=== PATIENT | male | born 1960 | race African-American/Black ===

== ENCOUNTER 2019-04-26 09:34 | Emergency (ER) | payer MEDICARE, OTHER, SELFPAY ==
[2019-04-26 09:35] VITALS: BP 183/115; PULSE 104; RESP 22; TEMP 36.8; O2SAT 97; O2SAT 98; BMI 36.6
--- NOTE | 2019-04-26 09:56 | RAD_ITS ---
STUDY: X-RAY CHEST REASON FOR EXAM: Male, 59 years old. Shortness of breath. TECHNIQUE: PA and lateral views of the chest. COMPARISON: None. FINDINGS: Sternotomy wires are midline. Mild prominent central interstitial markings are present. There is no demonstrated pleural abnormality. There is moderate cardiac enlargement. Normal mediastinum and josep. Normal visualized pulmonary arteries. There is atherosclerotic calcification of the aortic arch with tortuosity. Normal visualized thoracic spine. Normal visualized ribs, clavicles, and shoulders. There is no demonstrated abnormality of the visualized soft tissue structures of the upper abdomen. RAD/Chest PA and Lateral IMPRESSION: All prominent interstitial markings with mild interstitial edema not excluded. Electronically Signed: Clifford Mcadams DO at 11:18 EDT , Service support ,
--- NOTE | 2019-04-26 09:56 | EKG12_ITS ---
Test Reason : CP Blood Pressure : / mmHG Vent. Rate : 103 BPM Atrial Rate : 103 BPM P-R Int : 164 ms QRS Dur : 088 ms QT Int : 332 ms P-R-T Axes : 068 050 100 degrees QTc Int : 434 ms Sinus tachycardia Biatrial enlargement T wave abnormality, consider lateral ischemia Abnormal ECG Confirmed by SARIKA LICONA, GUDELIA ([id number]), photo editor LEMUEL ARGUETA ([id number]) on 04/29/2019 11:42:09 AM Referred By: AUTUMN Confirmed By:MARY LOU BAUM MD
[2019-04-26] MEDS: Albuterol 2.5 MG/3 ML VIAL.NEB. INHALATION ×3 (10:03→10:29)
[2019-04-26 10:04] VITALS: PULSE 96; RESP 22
[2019-04-26 10:20] LABS: Absolute Lymphocyte Count 0.78 X10^3/ul (0.83-4.51); Absolute Neutrophil Count 6.3 X10^3/uL (2.0-7.7); Basophil# 0.01 X10^3/uL; Basophil% 0.1 % (0-1); Eosinophil# 0.01 X10^3/uL; Eosinophils% 0.1 % (0-5); Hematocrit 40.8 % (40-54); Hemoglobin 12.8 g/dl (13.0-16.5); Lymphocyte # 0.78 X10^3/ul (4.0); Lymphocyte % 10.7 % (19-41); Mean Corp Hgb Conc 31.4 g/gl (32-36); Mean Corpuscular Hgb 27.6 pg (27.0-32.0); Mean Corpuscular Volume 88.1 fL (80-94); Mean Platelet Vol. 10.5 fl (6.2-12.0); Monocyte# 0.22 X10^3/uL; Neutrophil # 6.26 X10^3/uL (2.7-7.7); Platelet Count 300 K/mm3 (150-450); RBC Distribution Width CV 15.3 % (11.6-14.6); RBC Distribution Width SD 49.4 fl (35.1-43.9); Red Blood Count 4.63 M/mm3 (4.6-6.2); White Blood Count 7.3 K/mm3 (4.4-11.0)
[2019-04-26 10:22] LABS: POSITIVE COUNT NO; POSITIVE DIFFERENTIAL NO; POSITIVE MORPHOLOGY NO
[2019-04-26 10:31] LABS: Anion Gap 7 (5-15); BUN 12 mg/dL (7-18); BUN/Creat Ratio 12.7 RATIO (10-20); Chloride 107 mmol/L (98-107); Creatinine, Serum 0.94 mg/dL (0.70-1.30); EST Glomerular Filtration Rate 87 mL/min (>60); Est Glom Filt Rate - Afr Amer 105 mL/min (>60); Glucose 137 mg/dL (74-106); Potassium 3.7 mmol/L (3.5-5.1); Sodium Level 144 mmol/L (136-145)
[2019-04-26] MEDS: MethylPREDNISolone 125 MG/2 ML Vial IV (10:41)
[2019-04-26 10:42] VITALS: BP 145/99; PULSE 96; RESP 24; O2SAT 96
[2019-04-26 11:09] VITALS: BP 174/109; PULSE 101; RESP 19; O2SAT 94
--- NOTE | 2019-04-26 11:40 | ED.DCSUM_ITS ---
- ER Visit Summary Date of Service: 04/26/19 Chief Complaint: Dyspnea History of Present Illness: The patient is a 59 M who notes that for the past 3 days he has had a progressive worsening shortness of breath and chest tightness. He notes a history of obstructive sleep apnea and coronary artery disease. Former smoker. He states he has been using his albuterol MDI has been helping until he woke this morning early and could not lay down due to the tightness. His suggested a hot shower which did also did not help. He does note a yellow sputum production. He does not carry a diagnosis of COPD. He states he has had the symptoms a couple of times in the past. They do have access to a nebulizer machine but do not have the medication or the tubing Physical Examination: Afebrile vital signs are stable noted heart rate of 104. Gen: Well-nourished well-developed Head: Normocephalic atraumatic Eyes: Perrl EOMI ENT: TMs clear no rhinorrhea moist mucous membranes Neck: Supple no lymphadenopathy no JVD nontender CVS: Regular rate tachycardic rhythm no murmurs normal S1-S2 Respiratory: No distress inspiratory and expiratory wheezing chest nontender Abdomen: Soft nontender nondistended normal bowel sounds no masses Back: Nontender Extremity: Nontender no edema Skin: Normal color no rash Neuro: alert orientated ?3 CN II-XII intact normal strength sensation Psych: Normal affect normal mood Test Results: Chest x-ray shows no definitive infiltrate. CBC BMP are normal. EKG is a sinus tachycardia. Emergency Department Course and Treatment: Patient received breathing treatments and Solu-Medrol. Repeat examination his heart rate is into the 80s. His repeat lung exam shows faint expiratory wheezes and is feeling better. Patient will be discharged home with aerosols and prednisone as well as doxycycline. Instructions to follow-up with primary care return if worsening or concerns Impression: 1. Acute bronchitis with bronchospasm This note was generated with Taboola dictation software. It may contain incorrect words, spelling, and punctuation that were not noted in review of the chart prior to signing ED Disposition - Plan for ED Patient: Instructions: BRONCHITIS, Antiobiotic Treatment (Adult) Prescriptions: Prednisone [Deltasone] 60 mg PO DAILY #15 tab Prescription Printed Doxycycline 100 mg PO BID #20 cap Prescription Printed Albuterol Aerosols [Ventolin Aerosols] 2.5 mg INHALATION Q4H PRN #25 vial Prescription Printed Albuterol Inhaler [Ventolin Hfa] 2 puff INHALATION Q4H PRN PRN #1 inhaler PRN Reason: Wheezing Prescription Printed [facility] [[facility] Provider] - Keep Donna appointment
[2019-04-26 12:21] VITALS: BP 160/96; PULSE 94; RESP 17; O2SAT 95
== END 2019-04-26 12:34 | disposition home or self-care (01) ==
LOC: ED 10:15
PROVIDERS: Emergency Provider Emergency Medicine
DX: J20.9 Acute bronchitis, unspecified (principal); I25.10 Atherosclerotic heart disease of native coronary artery without angina pectoris; I10 Essential (primary) hypertension; Z95.1 Presence of aortocoronary bypass graft; Z79.82 Long term (current) use of aspirin; Z79.02 Long term (current) use of antithrombotics/antiplatelets; Z79.899 Other long term (current) drug therapy; Z87.891 Personal history of nicotine dependence
CPT/HCPCS: 71046; 80048; 85025; 93005; 94640; 96374; 99284; A4216

== ENCOUNTER 2021-01-21 09:45 | Outpatient (RCR) | payer MEDICARE, OTHER, SELFPAY ==
[2021-01-21] MEDS: COVID-19 VACC, MRNA(PFIZER)/PF 30 MCG/0.3 ML SYRINGE IM (15:24)
[2021-02-11] MEDS: COVID-19 VACC, MRNA(PFIZER)/PF 30 MCG/0.3 ML SYRINGE IM (15:03)
== END 2021-01-21 23:59 ==
LOC: IMMUN 09:45
PROVIDERS: Visit Provider Family Medicine
DX: Z23 Encounter for immunization (principal)
CPT/HCPCS: 0001A; 0002A; 91300

== ENCOUNTER 2021-03-22 13:42 | Emergency (ER) | payer OTHER, MEDICARE, SELFPAY ==
[2021-03-22 13:44] VITALS: BP 161/101; PULSE 78; RESP 18; TEMP 36.3; O2SAT 95; BMI 34.2
--- NOTE | 2021-03-22 14:11 | EKG12_ITS ---
Test Reason : FEVER Blood Pressure : / mmHG Vent. Rate : 061 BPM Atrial Rate : 061 BPM P-R Int : 172 ms QRS Dur : 094 ms QT Int : 416 ms P-R-T Axes : 063 042 071 degrees QTc Int : 418 ms Normal sinus rhythm with sinus arrhythmia Possible Left atrial enlargement Nonspecific T wave abnormality Abnormal ECG Confirmed by MALIK LICONA, JAMEL ([id number]), managing editor SINA RUTHERFORD ([id number]) on 03/23/2021 10:08:17 AM Referred By: KRISTI Confirmed By:JAMEL GAN MD
--- NOTE | 2021-03-22 14:17 | EX.ED.DYSGE1 ---
HPI History of Present Illness Chief Complaint: Fever Informant: patient and family Onset/Context/Timing Onset: Weeks (1) Narrative Narrative: 61-year-old male presenting with fever, cough. He states this started approximately 1 week ago. He has had fever, congestion, cough. He complains of rhinorrhea and sore throat. He complains of nausea and diarrhea. He has tried [id number] medications. He has a productive cough. He has been vaccinated for Covid. Denies sick contacts. He has chest pressure only when coughing. Denies other complaints. [facility] Medical History Coronary artery disease Hypertension Kidney stones Myocardial infarct Home Medications albuterol sulfate 2 puff INHALATION Q4H PRN PRN #1 inhaler 04/26/19 [Rx Last Taken Unknown] albuterol sulfate 2.5 mg INHALATION Q4H PRN #25 vial 04/26/19 [Rx Last Taken Unknown] carvedilol 50 mg PO BID 04/26/19 [History Last Taken Unknown] clopidogrel 75 mg PO DAILY 04/26/19 [History Last Taken Unknown] fluticasone propionate 2 spray NASAL DAILY 04/26/19 [History Last Taken Unknown] furosemide 20 mg PO PRN PRN 04/26/19 [History Last Taken Unknown] gabapentin 200 mg PO PRN PRN 04/26/19 [History Last Taken Unknown] lisinopril 20 mg PO BID 04/26/19 [History Last Taken Unknown] nitroglycerin 0.4 mg SL PRN PRN 04/26/19 [History Last Taken Unknown] tamsulosin 0.4 mg PO DAILY 04/26/19 [History Last Taken Unknown] aspirin [Aspir-81] 81 mg PO DAILY 03/22/21 [History Last Taken Unknown] baclofen 10 mg PO PRN PRN 03/22/21 [History Last Taken Unknown] benzonatate [Tessalon Perles] 100 mg PO BID PRN #20 cap 03/22/21 [Rx Last Taken Unknown] cholecalciferol (vitamin D3) [Vitamin D3] 50 mcg PO DAILY 03/22/21 [History Last Taken Unknown] empagliflozin 12.5 mg PO DAILY 03/22/21 [History Last Taken Unknown] eplerenone 12.5 mg DAILY 03/22/21 [History Last Taken Unknown] metformin 500 mg PO DAILY 03/22/21 [History Last Taken Unknown] rosuvastatin 80 mg PO DAILY 03/22/21 [History Last Taken Unknown] testosterone 1 patch TRANSDERMAL DAILY 03/22/21 [History Last Taken Unknown] Allergy/AdvReac Type Severity Reaction Status Date / Time No Known Allergies Allergy Verified 03/22/21 13:43 Surgical History History of coronary artery stent placement History of tonsillectomy Hx of CABG Social History Smoking Status: Former smoker ROS ROS ED Constitutional Constitutional ED: Reports fever(s) Eyes Eyes: Denies change in vision ENT ENT ED: Reports rhinorrhea and sore throat Cardiovascular Cardiovascular: Reports chest pain; Denies palpitations Respiratory/Chest Respiratory/Chest: Reports cough, dyspnea and sputum Gastrointestinal Gastrointestinal: Reports diarrhea, nausea and vomiting; Denies abdominal pain Genitourinary Genitourinary ED: Denies dysuria Musculoskeletal Musculoskeletal: Denies myalgias Integumentary Denies rash Neurologic Neurologic: Reports headache(s) EXAM Physical Exam Const Vital Signs: 03/22/21 13:44 03/22/21 14:40 Temperature 97.4 F L Temperature Source Temporal Pulse Rate 78 Respiratory Rate 18 Respiratory Effort Non-Labored Respiratory Depth Normal Respiratory Pattern Tachypnea Blood Pressure 161/101 H Blood Pressure Mean 121 Pulse Ox 95 Oxygen Delivery Method Room Air Room Air Positive well nourished and well developed General Appearance ED: well developed HEENT Reports normocephalic, head/scalp atraumatic and moist mucous membranes HEENT Narrative: Mild pharyngeal erythema with no exudate Eyes PERRL and EOMs intact bilaterally Neck supple Neck Narrative: No meningismus General: Negative for tenderness Chest Wall inspection of chest normal Resp normal respiratory effort and clear to auscultation bilaterally Cardio regular rate and regular rhythm GI non-tender and non-distended Palpation: soft; Negative for guarding or rebound tenderness present no CVA tenderness Extremity normal to inspection Neuro oriented x3 Sensorium / Orientation: alert Psych mental status grossly normal Skin no rashes or lesions noted MDM MDM MDM Narrative Medical decision making narrative: Labs are reviewed. His chest x-ray shows no acute process. Covid negative. EKG is unchanged from previous. His ambulatory pulse ox is 95% on room air. He is resting comfortably on reevaluation. He is advised to follow-up with his primary care physician. Advised to return to the ED for worsening complaints. Lab Data Attestation: I reviewed the patient's lab results. Labs: Laboratory Results - last 24 hr 03/22/21 03/22/21 14:35 14:35 WBC 8.3 RBC 4.85 Hgb 13.1 Hct 43.1 MCV 88.9 MCH 27.0 MCHC 30.4 L RDW Std Deviation 48.6 H RDW Coeff of Alexey 14.7 H Plt Count 318 MPV 9.8 Immature Gran % (Auto) 0.200 Neut % (Auto) 57.6 Lymph % (Auto) 25.7 [place] % (Auto) 13.2 H Eos % (Auto) 2.8 Baso % (Auto) 0.5 Absolute Neuts (auto) 4.8 Absolute Lymphs (auto) 2.14 Nucleated RBC % 0 Sodium 139 Potassium 3.3 L Chloride 103 Carbon Dioxide 30.0 Anion Gap 6 BUN 7 Creatinine 0.93 Estim Creat Clear Calc 69.84 Est GFR (MDRD) Af Amer 106 Est GFR (MDRD) Non-Af 87 BUN/Creatinine Ratio 7.5 L Glucose 128 H Calcium 9.0 Total Bilirubin 0.30 AST 16 ALT 23 Alkaline Phosphatase 93 Troponin I < 0.015 Total Protein 8.5 H Albumin 3.5 Globulin 5.0 H Albumin/Globulin Ratio 0.7 L Radiography Chest X-Ray - ED: 1 View, Read by ED Physician and Read by Radiologist Diagnostic Testing: Radiology Impression Chest X-Ray 03/22/21 14:20 IMPRESSION: No active disease. Electronically Signed: Brayden Vásquez MD at 15:13 EDT Tel , Service support , EKG Initial EKG: Attestation: I personally reviewed and interpreted this EKG as follows: Interpretation: Sinus Rhythm and No Acute Injury Pattern Prior EKG tracings: available for review Prior: Unchanged Discharge Plan Triage Chief Complaint: Fever ED Provider: Melissa Mcnamara Dx/Rx/DC Orders Clinical Impression: Viral syndrome Instructions: ED Viral Syndrome (Adult) Prescriptions: New benzonatate [Tessalon Perles] 100 mg capsule 100 mg PO BID PRN (Reason: cough) Qty: 20 RF: 0 No Action carvedilol 25 MG tablet 50 mg PO BID RF: 0 lisinopril 20 MG tablet 20 mg PO BID RF: 0 clopidogrel 75 MG tablet 75 mg PO DAILY RF: 0 tamsulosin 0.4 MG capsule 0.4 mg PO DAILY RF: 0 nitroglycerin 0.4 MG tablet, sublingual 0.4 mg SL PRN PRN (Reason: CHEST PAIN) RF: 0 furosemide 20 MG tablet 20 mg PO PRN PRN (Reason: other) RF: 0 gabapentin 100 MG capsule 200 mg PO PRN PRN (Reason: Pain) RF: 0 fluticasone propionate 1 SPRAY spray,suspension 2 spray NASAL DAILY RF: 0 albuterol sulfate 2.5 MG/3 ML solution for nebulization 2.5 mg inhalation Q4H PRN Qty: 25 RF: 0 albuterol sulfate 1 INHALER inhaler 2 puff inhalation Q4H PRN PRN (Reason: Wheezing) Qty: 1 RF: 0 metformin 500 mg Tablet 500 mg PO DAILY RF: 0 rosuvastatin 40 mg Tablet 80 mg PO DAILY RF: 0 empagliflozin 25 mg Tablet 12.5 mg PO DAILY RF: 0 eplerenone 12.5 mg DAILY RF: 0 aspirin [Aspir-81] 81 mg Tablet,Delayed Release (Dr/Ec) 81 mg PO DAILY RF: 0 baclofen 10 mg Tablet 10 mg PO PRN PRN (Reason: Muscle Pain) RF: 0 cholecalciferol (vitamin D3) [Vitamin D3] 50 mcg (2,000 unit) Tablet 50 mcg PO DAILY RF: 0 testosterone 2 mg/24 hour Patch 24 Hour 1 patch TRANSDERMAL DAILY RF: 0 [facility] [Primary [facility] Provider] - Disposition Disposition: Home, self care
--- NOTE | 2021-03-22 14:20 | RAD_ITS ---
STUDY: X-RAY CHEST REASON FOR EXAM: Male, 61 years old. cough, fever TECHNIQUE: Single AP portable view of the chest. COMPARISON: 04/26/2019 FINDINGS: Status post median sternotomy. The lungs are clear and expanded. There is no demonstrated pleural abnormality. There is moderate cardiac enlargement. Normal mediastinum and josep. Normal visualized pulmonary arteries. Normal visualized aortic arch and descending thoracic aorta. Normal visualized thoracic spine. Normal visualized ribs, clavicles, and shoulders. There is no demonstrated abnormality of the visualized soft tissue structures of the upper abdomen. RAD/Chest 1 View (Portable) IMPRESSION: No active disease. Electronically Signed: Brayden Vásquez MD at 15:13 EDT Tel , Service support ,
[2021-03-22 14:40] VITALS: O2SAT 97
[2021-03-22 14:49] LABS: Absolute Lymphocyte Count 2.14 X10^3/uL (0.83-4.51); Absolute Neutrophil Count 4.8 X10^3/uL (2.0-7.7); Basophil# 0.04 X10^3/uL; Basophil% 0.5 % (0-1); Eosinophil# 0.23 X10^3/uL; Eosinophils% 2.8 % (0-5); Hematocrit 43.1 % (40-54); Hemoglobin 13.1 g/dL (13.0-16.5); Lymphocyte # 2.14 X10^3/ul (0.83-4.51); Lymphocyte % 25.7 % (19-41); Mean Corp Hgb Conc 30.4 g/dL (32-36); Mean Corpuscular Volume 88.9 fL (80-94); Mean Platelet Vol. 9.8 fl (6.2-12.0); Monocyte% 13.2 % (0-10); NRBC Flagged by Analyzer 0 % (0-5); Neutrophil # 4.81 X10^3/uL (2.7-7.7); Neutrophil % 57.6 % (47-70); Platelet Count 318 K/mm3 (150-450); RBC Distribution Width CV 14.7 % (11.6-14.6); RBC Distribution Width SD 48.6 fl (35.1-43.9); Red Blood Count 4.85 M/mm3 (4.6-6.2); White Blood Count 8.3 K/mm3 (4.4-11.0)
[2021-03-22 15:02] LABS: ALB/GLOB Ratio 0.7 RATIO (0.9-2.4); AST(SGOT) 16 U/L (15-37); Alanine Aminotransfer ALT/SGPT 23 U/L (16-61); Albumin, Serum 3.5 g/dL (3.2-5.0); Alkaline Phosphatase 93 U/L (45-117); Anion Gap 6 (5-15); BUN 7 mg/dL (7-18); BUN/Creat Ratio 7.5 RATIO (10-20); Chloride 103 mmol/L (98-107); Creatinine, Serum 0.93 mg/dL (0.70-1.30); EST Glomerular Filtration Rate 87 mL/min (>60); Est Glom Filt Rate - Afr Amer 106 mL/min (>60); Estimated Creatinine Clearance 69.84 ml/min; Glucose 128 mg/dL (74-106); Potassium 3.3 mmol/L (3.5-5.1); Protein, Total 8.5 g/dL (6.4-8.2); Sodium Level 139 mmol/L (136-145)
[2021-03-22 15:27] VITALS: O2SAT 95
[2021-03-22 16:06] VITALS: BP 135/80; PULSE 75; RESP 16; O2SAT 95
== END 2021-03-22 16:07 | disposition home or self-care (01) ==
PROVIDERS: Emergency Provider Emergency Medicine
DX: B34.9 Viral infection, unspecified (principal); Z20.822 Contact with and (suspected) exposure to COVID-19; R05 Cough; R50.9 Fever, unspecified; J02.9 Acute pharyngitis, unspecified; J34.89 Other specified disorders of nose and nasal sinuses; R11.0 Nausea; R19.7 Diarrhea, unspecified; R07.89 Other chest pain; I25.10 Atherosclerotic heart disease of native coronary artery without angina pectoris; I10 Essential (primary) hypertension; Z79.84 Long term (current) use of oral hypoglycemic drugs; Z79.02 Long term (current) use of antithrombotics/antiplatelets; Z79.82 Long term (current) use of aspirin; Z79.899 Other long term (current) drug therapy; Z87.891 Personal history of nicotine dependence; Z95.1 Presence of aortocoronary bypass graft; Z95.5 Presence of coronary angioplasty implant and graft
CPT/HCPCS: 71045; 80053; 84484; 85025; 87426; 93005; 96360; 99284; J7030

== ENCOUNTER 2022-02-18 07:52 | Day surgery (SDC) | payer OTHER, SELFPAY ==
[2022-02-18] VITALS (7 sets, daily range): BP systolic 86–134; BP diastolic 57–65; PULSE 51–74; RESP 16–18; TEMP 36.3–37.1; O2SAT 96–99; BMI 34.0
--- NOTE | 2022-02-18 08:34 | PCM.HP.BLA ---
History and Physical Date of Admission: 02/18/22 Visit Reasons: EGD AND COLONOSCOPY Chief Complaint: EGD and Colonoscopy Human Resources Clerk Required: No Is patient in pain?: No Allergies No Known Allergies Allergy (Verified 01/14/22 09:29) Medications albuterol sulfate 2 puff INHALATION Q4H PRN PRN #1 inhaler 04/26/19 [Rx Confirmed 01/14/22] albuterol sulfate 2.5 mg INHALATION Q4H PRN #25 vial 04/26/19 [Rx Confirmed 01/14/22] carvedilol 50 mg PO BID 04/26/19 [History Confirmed 01/14/22] clopidogrel 75 mg PO DAILY 04/26/19 [History Confirmed 01/14/22] fluticasone propionate 2 spray NASAL DAILY 04/26/19 [History Confirmed 01/14/22] furosemide 20 mg PO PRN PRN 04/26/19 [History Confirmed 01/14/22] gabapentin 200 mg PO PRN PRN 04/26/19 [History Confirmed 01/14/22] lisinopril 20 mg PO BID 04/26/19 [History Confirmed 01/14/22] nitroglycerin 0.4 mg SUBLINGUAL PRN PRN 04/26/19 [History Confirmed 01/14/22] tamsulosin 0.4 mg PO DAILY 04/26/19 [History Confirmed 01/14/22] aspirin [Aspir-81] 81 mg PO DAILY 03/22/21 [History Confirmed 01/14/22] baclofen 10 mg PO PRN PRN 03/22/21 [History Confirmed 01/14/22] benzonatate [Tessalon Perles] 100 mg PO BID PRN #20 cap 03/22/21 [Rx Confirmed 01/14/22] cholecalciferol (vitamin D3) [Vitamin D3] 50 mcg PO DAILY 03/22/21 [History Confirmed 01/14/22] empagliflozin 12.5 mg PO DAILY 03/22/21 [History Confirmed 01/14/22] eplerenone 12.5 mg DAILY 03/22/21 [History Confirmed 01/14/22] metformin 500 mg PO DAILY 03/22/21 [History Confirmed 01/14/22] rosuvastatin 80 mg PO DAILY 03/22/21 [History Confirmed 01/14/22] testosterone 1 patch TRANSDERMAL DAILY 03/22/21 [History Confirmed 01/14/22] ferrous sulfate 325 mg (65 mg iron) tablet 325 mg PO BID 01/14/22 [History Confirmed 01/14/22] pantoprazole 20 mg tablet,delayed release 20 mg PO DAILY 01/14/22 [History Confirmed 01/14/22] [facility] Medical History Coronary artery disease Hypertension Kidney stones Myocardial infarct Surgical History History of coronary artery stent placement History of tonsillectomy Hx of CABG Family History (Updated 01/14/22 @ 09:25 by Natty Monday) Mother Arthritis Diabetes Hypertension High cholesterol CVA (cerebral vascular accident) Father Hypertension Sister Diabetes Hypertension Social History Smoking Status: Former smoker alcohol intake: current substance use type: marijuana HPI HPI HPI: HILARIO CHRISTIANSON, is a 62 M who presents to the office today for surgical consultation regarding possible upper and lower endoscopy. The patient is referred by the [facility]. One of the patient's concerns is esophageal dysphagia. He notes that food continues to get stuck in his throat. He notes that liquids also cause him trouble. Only with cold or carbonated beverages. Belching helps. He has a known history of gastroesophageal reflux disease. He had an upper endoscopy on May 05, 2016 which at that point was felt to be normal. He is on pantoprazole 20 mg daily. On December 02, 2021 modified barium swallow was obtained. Multiple consistencies of barium were administered without penetration or aspiration. I do not see any additional discussion or description regarding the esophagus. Patient specifically describes that cold fluids causes him to almost spasm and lock up. He has to burp or regurgitate or have someone hit him on the back to help break the spasm He has never had a colonoscopy He is disabled from the service He describes episodes of severe abdominal spasms and cramping. He has not had this evaluated. It has been ongoing for years. He has had coronary bypass surgery and is on clopidogrel therapy. He has a remote history of cigarette smoking but says he quit 15 years ago. He did well with current weight change. No bright red blood per rectum or melena ROS General General: Yes fatigue; No weight change, appetite, colon cancer, breast cancer or weakness HEENT HEENT: Yes difficulty swallowing; No eye injury, eye surgery, swollen glands or hoarseness Endo Endocrine: No thyroid disease, diabetes mellitus, thyroid cancer, Hair loss, heat intolerance or cold intolerance Skin Skin: No rash or changing moles Musc Musculoskeletal: Yes arthritis and rheumatoid arthritis; No back problems, gout or joint pain Cardio Cardiovascular: Yes heart disease, atrial fibrillation, high blood pressure, heart attack and heart stent; No murmur, pacemaker, palpitations, shortness of breat with exertion or chest pain Psych Psychiatric: No depression, anxiety or hearing voices Resp Respiratory: Yes shortness of breath, Yes sleep apnea, No cough, No COPD, No asthma, No emphysema and No wheezing Gastro Gastrointestinal: Yes abdominal pain, No nausea or vomiting, No diarrhea, No constipation, No blood in stool, Yes acid reflux, No hemorrhoids, No ulcers, No gallbladder problem and No black,tarry stools Marcelo Hematologic: Yes blood thinners, No blood disorders, No bleeding, No anemia and No blood clots Neuro Neurologic: No system reviewed and no additional complaints, except as documented, No as per HPI, No abnormal gait, No abnormal hearing, No abnormal movements, No abnormal speech, No behavioral changes, No burning sensations, No confusion, No convulsions, No disequilibrium, No dizziness, No localized weakness, No frequent falls, No headache(s), No lack of coordination, No loss of vision, No memory loss, No numbness, No other visual disturbances, No radicular pain, No restless legs, No sensory deficit, No syncope, No tingling, No tremor(s), No weakness and No other Exam Const General: cooperative and comfortable Nutritional Appearance: overweight Orientation: alert and awake [facility] Head: normal to inspection Eyes General: appearance normal, both eyes and all related structures Neck Neck: normal visual inspection Resp Effort & Inspection: normal respiratory effort Auscultation: clear to auscultation bilaterally Cardio Rate: regular rate Rhythm: regular rhythm GI Palpation: soft and no hepatosplenomegaly Neuro General: patient alert and patient awake Extrem General: normal to inspection and no calf tenderness Assessment and Plan Assessment and Plan (1) Difficulty swallowing: Status: Acute Qualifiers: Dysphagia type: oropharyngeal phase Qualified Code(s): R13.12 - Dysphagia, oropharyngeal phase Comment: Both liquids and solids, mostly liquids (2) Screening for intestinal cancer: Status: Acute Plan - Dr. Abner Cardona MD: I recommend to the patient is esophagogastroduodenoscopy with possible biopsy. Very careful inspection prickly of the esophagus looking for any areas of potential obstruction or stricturing. Careful inspection for possible eosinophilic esophagitis. I recommend a screening colonoscopy with possible biopsy or polypectomy as indicated. The patient is aware of technique, benefit, risk of alternatives. Pending the findings he might benefit from a future esophageal manometry. Some of his abdominal aches and cramping almost sound like IBS. The symptoms however are chronic over multiple years. Might require future GI referral. He has had an opportunity to ask and have questions answered. I appreciate the opportunity of assisting with surgical care. Copy: [facility] Abner Cardona M.D., F.A.C.S. I have re-examined the patient. There are no clinical changes since date of exam. Abner Cardona M.D., F.A.C.S.
[2022-02-18] MEDS: Lactated Ringers 1,000 ML 30 ML IV (08:37)
[2022-02-18 08:45] LABS: Bedside Glucose 131 mg/dL (74-106)
--- NOTE | 2022-02-18 09:00 | EGD_PTH ---
PATIENT: HILARIO CHRISTIANSON LOC: EN U#:[id number] AGE/SX: 62/M ROOM: RE02/18/[address]: Dr. Abner Cardona MD : 1960 BED: DIS: 02/18/2022 SPEC #: [id number] RECD: 02/18/22 11:47 STATUS: ANGELICA ASHLEY #: [id number] [place]: 02/18/22 09:[address]: Abner Cardona DEPT: SURGICAL PATHOLOGY RECD BY: Nancy Saab ENTERED: 02/18/22 12:14 SP TYPE: EGD BIOPSY OT DR: [facility] Tissues: A - Duodenum, NOS B - Gastric mucous membrane C - Esophagus, NOS D - Esophagus, NOS E - Transverse colon Procedures: Special Stain Group II Surgery Specimen Level IV Alcian Blue/PAS (control) HEADER OPERATION: Colonoscopy with hot snare, EGD with biopsy ([facility]) PRE-OP DIAGNOSIS: Difficulty swallowing, screening TISSUE SUBMITTED: A ? Duodenum biopsy, B ? Antrum biopsy, C ? Distal esophagus biopsy, D ? Mid esophagus biopsy, E ? Proximal transverse colon polyp MICROSCOPIC DIAGNOSIS A. Duodenum, biopsy: Minimal nonspecific chronic inflammation and focal acute inflammation. B. Gastric antrum, biopsy: Mild chronic gastritis. See comment. C. Distal esophagus, biopsy: No pathologic change. No evidence of goblet cell metaplasia. See comment. D. Mid esophagus, biopsy: No pathologic change. E. Proximal transverse colon polyp, biopsy: Fragments of tubular adenoma. AM:[place] 02/21/2022 COMMENT B. The results of immunohistochemistry for Helicobacter pylori will be reported separately ([id number]). C. Alcian blue/PAS stain with matched control supports the above diagnosis. MICROSCOPIC DESCRIPTION Slides are reviewed. GROSS DESCRIPTION A - Received in fixative is one container labeled with the patient's name and designated duodenum biopsy. The specimen consists of one irregular fragment of light gutierrez soft tissue that measures 0.3 x 0.3 x 0.1 cm. The specimen is totally submitted in one cassette. B - Received in fixative is one container labeled with the patient's name and designated antrum biopsy. The specimen consists of one irregular fragment of light gutierrez soft tissue that measures 0.8 x 0.2 x 0.1 cm. The specimen is totally submitted in one cassette. C - Received in fixative is one container labeled with the patient's name and designated distal esophagus biopsy. The specimen consists of one irregular fragment of light gutierrez soft tissue that measures 0.3 x 0.3 x 0.1 cm. The specimen is totally submitted in one cassette. D - Received in fixative is one container labeled with the patient's name and designated mid esophagus biopsy. The specimen consists of two irregular fragments of light gutierrez soft tissue that in aggregate measure 0.5 x 0.2 x 0.1 cm. The specimen is totally submitted in one cassette. E - Received in fixative is one container labeled with the patient's name and designated proximal transverse colon polyp. The specimen consists of multiple irregular fragments of light gutierrez soft tissue that in aggregate measure 0.4 x 0.2 x 0.1 cm. The specimen is totally submitted in one cassette. / CLARA:[place] 02/18/2022 TC:2 CPT: 29651 x5, 13317
--- NOTE | 2022-02-18 09:00 | IMM_PTH ---
PATIENT: HILARIO CHRISTIANSON LOC: EN U#:[id number] AGE/SX: 62/M ROOM: RE02/18/[address]: Dr. Abner Cardona MD : 1960 BED: DIS: 02/18/2022 SPEC #: [id number] RECD: 02/18/22 12:24 STATUS: ANGELICA RAMIREZ #: [id number] [place]: 02/18/22 09:[address]: Abner Cardona DEPT: IMMUNOHISTOCHEMISTRY RECD BY: Emelyn Gacria ENTERED: 02/18/22 12:24 SP TYPE: IMMUNO OTHR DR: [facility] Tissues: B - Stomach, NOS Procedures: H Pylori (initial) PHYSICIAN & INSTITUTION [place] [id number] SPECIMEN INFORMATION: Tissue Source: B ? Antrum biopsy Clinical Info: Difficulty swallowing, screening Specimen Number: [id number] CPT code: 98759 METHODOLOGY: Deparaffinized sections of prefer/formalin-fixed tissue or PAP/DQ stained slides are incubated with monoclonal/polyclonal antibodies/oligonucleotide probes. Localization is made via biotin free immunoperoxidase method. Appropriate controls are performed and reacted as expected. Results on target cell population are indicated in the following table: RESULTS: ANTIBODY / CLONE RESULT Block B H Pylori (polyclonal) negative These tests were developed and their performance characteristics determined by [facility]. They may not have been cleared or approved by the U.S. Food and Drug Administration. The FDA has determined that such clearance or approval is not necessary. The above immunohistochemical/dualISH markers are ordered and reviewed by the Pathologist. INTERPRETATION: B. Antrum biopsy: Negative for Helicobacter pylori organisms. AM:[place] 02/22/2022
--- NOTE | 2022-02-18 10:07 | OP.EGD_ITS ---
Patient Name: Johnathan Lewis Procedure Date: 02/18/2022 9:33 AM Date of : 1960 Age: 62 Procedure: Upper GI endoscopy Indications: Dysphagia Providers: Abner Cardona MD Medicines: See the Anesthesia note for documentation of the administered medications Complications: No immediate complications. Procedure: Pre-Anesthesia Assessment: - Prior to the procedure, a History and Physical was performed, and patient medications and allergies were reviewed. The patient's tolerance of previous anesthesia was also reviewed. The risks and benefits of the procedure and the sedation options and risks were discussed with the patient. All questions were answered, and informed consent was obtained. Prior Anticoagulants: The patient has taken no previous anticoagulant or antiplatelet agents. ASA Grade Assessment: II - A patient with mild systemic disease. After reviewing the risks and benefits, the patient was deemed in satisfactory condition to undergo the procedure. After obtaining informed consent, the endoscope was passed under direct vision. Throughout the procedure, the patient's blood pressure, pulse, and oxygen saturations were monitored continuously. The gastroscope was introduced through the mouth, and advanced to the second part of duodenum. The upper GI endoscopy was accomplished without difficulty. The patient tolerated the procedure well. Scope In: 9:41:07 AM Scope Out: 9:46:47 AM Total Procedure Duration Time 0 hours 5 minutes 40 seconds Findings: The middle third of the esophagus was normal. Biopsies were taken with a cold forceps for histology. The distal esophagus was normal. Biopsies were taken with a cold forceps for histology. The Z-line was regular and was found 40 cm from the incisors. Diffuse mildly erythematous mucosa without bleeding was found in the gastric antrum. Biopsies were taken with a cold forceps for histology. The examined duodenum was normal. Biopsies were taken with a cold forceps for histology. Impression: - Normal middle third of esophagus. Biopsied. - Normal distal esophagus. Biopsied. - Z-line regular, 40 cm from the incisors. - Erythematous mucosa in the antrum. Biopsied. - Normal examined duodenum. Biopsied. Recommendation: - Discharge patient to home. - Resume previous diet. - Continue present medications. - Telephone my office for pathology results in 1 week. Procedure Code(s): --- Professional --- 93594, Esophagogastroduodenoscopy, flexible, transoral; with biopsy, single or multiple Diagnosis Code(s): --- Professional --- K31.89, Other diseases of stomach and duodenum R13.10, Dysphagia, unspecified CPT copyright 2017 [employer]. All rights reserved. The codes documented in this report are preliminary and upon finishing range operator review may be revised to meet current compliance requirements. Abner Cardona MD 02/18/2022 10:07:34 AM This report has been signed electronically. Number of Addenda: 0 Note Initiated On: 02/18/2022 9:33 AM
--- NOTE | 2022-02-18 10:08 | OP.CCLET_ITS ---
02/18/2022 [facility] Re : Upper GI endoscopy procedure for Johnathan Lewis [facility] This procedure was performed on Friday, February 18, 2022. My impressions and recommendations are as follows: Impressions : - Normal middle third of esophagus. Biopsied. - Normal distal esophagus. Biopsied. - Z-line regular, 40 cm from the incisors. - Erythematous mucosa in the antrum. Biopsied. - Normal examined duodenum. Biopsied. Recommendations : - Discharge patient to home. - Resume previous diet. - Continue present medications. - Telephone my office for pathology results in 1 week. My findings are described in the full procedure note, which is enclosed. If I can be of further assistance, please feel free to contact me at Doctor phone number(s): Work: . Sincerely, Abner Cardona MD 02/18/2022 10:07:34 AM This report has been signed electronically.
--- NOTE | 2022-02-18 10:11 | OP.COLON_ITS ---
Patient Name: Johnathan Lewis Procedure Date: 02/18/2022 9:49 AM Date of : 1960 Age: 62 Procedure: Colonoscopy Indications: Screening for colorectal malignant neoplasm Providers: Abner Cardona MD Medicines: See the Anesthesia note for documentation of the administered medications Patient Profile: Last Colonoscopy: none. The patient's first colonoscopy is today. Complications: No immediate complications. Procedure: Pre-Anesthesia Assessment: - Prior to the procedure, a History and Physical was performed, and patient medications and allergies were reviewed. The patient's tolerance of previous anesthesia was also reviewed. The risks and benefits of the procedure and the sedation options and risks were discussed with the patient. All questions were answered, and informed consent was obtained. Prior Anticoagulants: The patient has taken no previous anticoagulant or antiplatelet agents. ASA Grade Assessment: II - A patient with mild systemic disease. After reviewing the risks and benefits, the patient was deemed in satisfactory condition to undergo the procedure. After I obtained informed consent, the scope was passed under direct vision. Throughout the procedure, the patient's blood pressure, pulse, and oxygen saturations were monitored continuously. The colonoscope was introduced through the anus and advanced to the cecum, identified by appendiceal orifice and ileocecal valve. The colonoscopy was performed without difficulty. The patient tolerated the procedure well. The quality of the bowel preparation was fair. The ileocecal valve and the appendiceal orifice were photographed. Scope In: 9:51:23 AM Scope Withdrawal Time 0 hours 7 minutes 31 seconds Scope Out: 10:02:49 AM Total Procedure Duration Time 0 hours 11 minutes 26 seconds Findings: Hemorrhoids were found on perianal exam. A 10 mm polyp was found in the proximal transverse colon. The polyp was semi-pedunculated. The polyp was removed with a hot snare. Resection and retrieval were complete. Many diverticula were found in the sigmoid colon and descending colon. Impression: - Preparation of the colon was fair. - Hemorrhoids found on perianal exam. - One 10 mm polyp in the proximal transverse colon, removed with a hot snare. Resected and retrieved. - Diverticulosis in the sigmoid colon and in the descending colon. Recommendation: - Discharge patient to home. - Resume previous diet. - Continue present medications. - Repeat colonoscopy in 5 years for surveillance based on pathology results. - Telephone my office for pathology results in 1 week. Procedure Code(s): --- Professional --- 06729, Colonoscopy, flexible; with removal of tumor(s), polyp(s), or other lesion(s) by snare technique Diagnosis Code(s): --- Professional --- Z12.11, Encounter for screening for malignant neoplasm of colon K64.9, Unspecified hemorrhoids D12.3, Benign neoplasm of transverse colon (hepatic flexure or splenic flexure) K57.30, Diverticulosis of large intestine without perforation or abscess without bleeding CPT copyright 2017 [employer]. All rights reserved. The codes documented in this report are preliminary and upon middle school special education teacher review may be revised to meet current compliance requirements. Abner Cardona MD 02/18/2022 10:11:02 AM This report has been signed electronically. Number of Addenda: 0 Note Initiated On: 02/18/2022 9:49 AM
--- NOTE | 2022-02-18 10:11 | OP.CCLET_ITS ---
02/18/2022 [facility] Re : Colonoscopy procedure for Johnathan [facility] This procedure was performed on Friday, February 18, 2022. My impressions and recommendations are as follows: Impressions : - Preparation of the colon was fair. - Hemorrhoids found on perianal exam. - One 10 mm polyp in the proximal transverse colon, removed with a hot snare. Resected and retrieved. - Diverticulosis in the sigmoid colon and in the descending colon. Recommendations : - Discharge patient to home. - Resume previous diet. - Continue present medications. - Repeat colonoscopy in 5 years for surveillance based on pathology results. - Telephone my office for pathology results in 1 week. My findings are described in the full procedure note, which is enclosed. If I can be of further assistance, please feel free to contact me at Doctor phone number(s): Work: . Sincerely, Abner Cardona MD 02/18/2022 10:11:02 AM This report has been signed electronically.
== END 2022-02-18 23:59 | disposition home or self-care (01) ==
LOC: EN 07:56 → AC 07:57
PROVIDERS: Visit Provider Surgery
PROC: 0DJD8ZZ Inspection of Lower Intestinal Tract, Via Natural or Artificial Opening Endoscopic (ICD-10-PCS; CPT 45378; principal; 2022-02-18 08:55)
DX: Z12.11 Encounter for screening for malignant neoplasm of colon (principal); I11.0 Hypertensive heart disease with heart failure; I50.9 Heart failure, unspecified; I48.91 Unspecified atrial fibrillation; E11.9 Type 2 diabetes mellitus without complications; D12.3 Benign neoplasm of transverse colon; K29.50 Unspecified chronic gastritis without bleeding; K31.89 Other diseases of stomach and duodenum; K57.30 Diverticulosis of large intestine without perforation or abscess without bleeding; I25.10 Atherosclerotic heart disease of native coronary artery without angina pectoris; F12.90 Cannabis use, unspecified, uncomplicated; K21.9 Gastro-esophageal reflux disease without esophagitis; K64.9 Unspecified hemorrhoids; R13.12 Dysphagia, oropharyngeal phase; G47.30 Sleep apnea, unspecified; I25.2 Old myocardial infarction; M19.90 Unspecified osteoarthritis, unspecified site; E78.00 Pure hypercholesterolemia, unspecified; Z79.82 Long term (current) use of aspirin; Z79.84 Long term (current) use of oral hypoglycemic drugs; Z79.899 Other long term (current) drug therapy; Z95.5 Presence of coronary angioplasty implant and graft; Z87.891 Personal history of nicotine dependence
CPT/HCPCS: 45385; 43239; 82962; 88305; 88313; 88342; J7120; J2405

== ENCOUNTER 2024-09-15 14:35 | Observation (INO) | payer OTHER, SELFPAY ==
[2024-09-15 14:36] VITALS: BP 191/109; PULSE 66; RESP 18; TEMP 36.2; O2SAT 99; BMI 33.7
[2024-09-15] MEDS: Ondansetron ODT 4 MG Tablet PO (15:02)
[2024-09-15] MEDS: HYDROcodone Bitartrate/Apap 5/325 Tablet PO (15:03)
[2024-09-15 15:14] LABS: Absolute Lymphocyte Count 2.66 X10^3/uL (0.83-4.51); Basophil# 0.04 X10^3/uL; Basophil% 0.5 % (0-1); Eosinophil# 0.09 X10^3/uL; Eosinophils% 1.2 % (0-5); Hematocrit 41.5 % (40-54); Hemoglobin 13.2 g/dL (13.0-16.5); Lymphocyte # 2.66 X10^3/ul (0.83-4.51); Mean Corp Hgb Conc 31.8 g/dL (32-36); Mean Corpuscular Hgb 28.8 pg (27.0-32.0); Mean Corpuscular Volume 90.6 fL (80-94); Mean Platelet Vol. 9.9 fl (6.2-12.0); Monocyte% 8.1 % (0-10); NRBC Flagged by Analyzer 0 % (0-5); Neutrophil # 3.98 X10^3/uL (2.7-7.7); Neutrophil % 53.9 % (47-70); Platelet Count 264 K/mm3 (150-450); RBC Distribution Width CV 14.4 % (11.6-14.6); RBC Distribution Width SD 47.5 fl (35.1-43.9); Red Blood Count 4.58 M/mm3 (4.6-6.2); White Blood Count 7.4 K/mm3 (4.4-11.0)
[2024-09-15 15:22] LABS: International Normalized Ratio 1.1; Prothrombin Time (Protime)PT. 13.7 SECONDS (11.7-14.9)
[2024-09-15 15:23] LABS: Partial Thromboplast Time 36.5 Seconds (24.1-36.2)
[2024-09-15 15:38] LABS: AST(SGOT) 17 U/L (15-37); Alanine Aminotransfer ALT/SGPT 24 U/L (16-61); Albumin, Serum 3.8 g/dL (3.2-5.0); Alkaline Phosphatase 62 U/L (45-117); Anion Gap 5 (5-15); BUN 9 mg/dL (7-18); BUN/Creat Ratio 11.9 RATIO (10-20); Bilirubin, Direct 0.13 mg/dL (0.00-0.30); Calcium,Total 9.4 mg/dL (8.5-10.1); Chloride 105 mmol/L (98-107); Creatinine, Serum 0.76 mg/dL (0.70-1.30); EST Glomerular Filtration Rate 110 mL/min (>60); Est Glom Filt Rate - Afr Amer 134 mL/min (>60); Estimated Creatinine Clearance 98.98 ml/min; Globulin 4.1 g/dL (2.2-4.2); Glucose 102 mg/dL (74-106); Potassium 3.4 mmol/L (3.5-5.1); Protein, Total 7.9 g/dL (6.4-8.2); Sodium Level 139 mmol/L (136-145); Troponin-I HS 28 pg/mL (3.0-78.0)
[2024-09-15] MEDS: Amox/Clavulanate 875 MG Tablet PO (16:30)
[2024-09-15 16:46] VITALS: BP 184/104; PULSE 78; RESP 16; TEMP 36.6; O2SAT 99
[2024-09-15] MEDS: Aspirin 81 MG TAB.CHEW 243 MG PO (17:14)
[2024-09-15 17:57] VITALS: BMI 33.7
[2024-09-15 18:28] VITALS: BP 182/102; PULSE 84; RESP 16; TEMP 36.7; O2SAT 97
[2024-09-15 18:29] VITALS: BP 178/94; BP 185/86; BP 192/99; PULSE 79; PULSE 81; PULSE 82
[2024-09-15] MEDS: Amox/Clavulanate 500 MG Tablet PO (23:39)
[2024-09-15] MEDS: Tamsulosin HCl 0.4 MG Capsule PO (23:40)
[2024-09-15] MEDS: Ezetimibe 10 MG Tablet PO (23:40)
[2024-09-15] MEDS: Pantoprazole Sodium 20 MG Tablet PO (23:40)
[2024-09-15] MEDS: SACUBITRIL/VALSARTAN 97-103 MG TABLET 1 EACH PO (23:40)
[2024-09-15] MEDS: Atorvastatin Calcium 80 MG Tablet PO (23:40)
[2024-09-15] MEDS: Acetaminophen 325 MG Tablet 650 MG PO (23:40)
[2024-09-15 23:49] VITALS: BP 178/92; PULSE 79; RESP 16; TEMP 37.2; O2SAT 98
[2024-09-16] MEDS: Amox/Clavulanate 500 MG Tablet PO ×2 (05:21→13:11)
[2024-09-16] MEDS: Acetaminophen 325 MG Tablet 650 MG PO ×2 (05:22→13:10)
[2024-09-16 05:28] VITALS: BP 149/76; PULSE 61; RESP 16; TEMP 36.5; O2SAT 97
[2024-09-16 07:26] LABS: Absolute Lymphocyte Count 2.49 X10^3/uL (0.83-4.51); Absolute Neutrophil Count 2.4 X10^3/uL (2.0-7.7); Basophil# 0.03 X10^3/uL; Basophil% 0.5 % (0-1); Eosinophil# 0.08 X10^3/uL; Eosinophils% 1.4 % (0-5); Hematocrit 40.3 % (40-54); Hemoglobin 12.8 g/dL (13.0-16.5); Lymphocyte # 2.49 X10^3/ul (0.83-4.51); Lymphocyte % 44.6 % (19-41); Mean Corp Hgb Conc 31.8 g/dL (32-36); Mean Corpuscular Hgb 28.7 pg (27.0-32.0); Mean Corpuscular Volume 90.4 fL (80-94); Mean Platelet Vol. 9.8 fl (6.2-12.0); Monocyte# 0.54 X10^3/uL; Monocyte% 9.7 % (0-10); NRBC Flagged by Analyzer 0 % (0-5); Neutrophil # 2.43 X10^3/uL (2.7-7.7); Neutrophil % 43.6 % (47-70); Platelet Count 234 K/mm3 (150-450); RBC Distribution Width CV 14.2 % (11.6-14.6); Red Blood Count 4.46 M/mm3 (4.6-6.2); White Blood Count 5.6 K/mm3 (4.4-11.0)
[2024-09-16 07:46] LABS: International Normalized Ratio 1.1
[2024-09-16 08:37] LABS: ALB/GLOB Ratio 0.9 RATIO (0.9-2.4); AST(SGOT) 18 U/L (15-37); Alanine Aminotransfer ALT/SGPT 25 U/L (16-61); Albumin, Serum 3.4 g/dL (3.2-5.0); Alkaline Phosphatase 59 U/L (45-117); Anion Gap 6 (5-15); BUN 9 mg/dL (7-18); BUN/Creat Ratio 13.1 RATIO (10-20); Calcium,Total 8.7 mg/dL (8.5-10.1); Chloride 108 mmol/L (98-107); Creatinine, Serum 0.69 mg/dL (0.70-1.30); EST Glomerular Filtration Rate 123 mL/min (>60); Est Glom Filt Rate - Afr Amer 149 mL/min (>60); Estimated Creatinine Clearance 109.02 ml/min; Globulin 3.6 g/dL (2.2-4.2); Glucose 112 mg/dL (74-106); Magnesium 1.8 mg/dL (1.6-2.6); Phosphorus 3.1 mg/dL (2.5-4.9); Potassium 3.6 mmol/L (3.5-5.1); Sodium Level 140 mmol/L (136-145); Thyroid Stim Hormone (TSH) 0.965 uIU/mL (0.358-3.740)
[2024-09-16 09:49] VITALS: BP 148/79; PULSE 66; RESP 16; TEMP 36.7; O2SAT 95
[2024-09-16] MEDS: Empagliflozin 25 MG Tablet 12.5 MG PO (09:51)
[2024-09-16] MEDS: Pantoprazole Sodium 20 MG Tablet PO (09:51)
[2024-09-16] MEDS: Clopidogrel Bisulfate 75 MG Tablet PO (09:51)
[2024-09-16] MEDS: Aspirin E.C. 81 MG Tablet PO (09:52)
[2024-09-16] MEDS: Eplerenone 25 MG Tablet PO (09:52)
[2024-09-16] MEDS: SACUBITRIL/VALSARTAN 97-103 MG TABLET 1 EACH PO (09:52)
[2024-09-16] MEDS: Furosemide 20 MG Tablet PO (09:52)
[2024-09-16 16:25] VITALS: BP 153/98; PULSE 80; RESP 18; TEMP 36.6; O2SAT 96
== END 2024-09-16 17:07 | disposition home or self-care (01) ==
LOC: ED 16:42 → MS3 16:51
PROVIDERS: Admitting Provider Internal Medicine; Emergency Provider Emergency Medicine; Referring Provider Emergency Medicine; Visit Provider Internal Medicine
DX: R55 Syncope and collapse (principal); M06.9 Rheumatoid arthritis, unspecified; I11.0 Hypertensive heart disease with heart failure; I50.9 Heart failure, unspecified; I48.91 Unspecified atrial fibrillation; E11.40 Type 2 diabetes mellitus with diabetic neuropathy, unspecified; Z79.84 Long term (current) use of oral hypoglycemic drugs; H53.8 Other visual disturbances; R42 Dizziness and giddiness; Z87.891 Personal history of nicotine dependence; E78.00 Pure hypercholesterolemia, unspecified; I25.10 Atherosclerotic heart disease of native coronary artery without angina pectoris; G47.33 Obstructive sleep apnea (adult) (pediatric); K21.9 Gastro-esophageal reflux disease without esophagitis; Z79.02 Long term (current) use of antithrombotics/antiplatelets; Z79.899 Other long term (current) drug therapy; Z79.82 Long term (current) use of aspirin; K02.9 Dental caries, unspecified; R68.84 Jaw pain; N40.1 Benign prostatic hyperplasia with lower urinary tract symptoms; N13.8 Other obstructive and reflux uropathy
CPT/HCPCS: 36415; 70450; 71046; 80048; 80053; 80076; 83735; 84100; 84443; 84484; 85025; 85610; 85730; 93005; 93306; 97802; 99221; 99285; Q9957; A4216; C8929; G0378